=== PATIENT | female | born 1950 | race Caucasian/White ===

== ENCOUNTER → 2016-08-19 09:20 | Outpatient (CLI) | payer MEDICARE, BC ==
[2013-08-31 18:50] VITALS: BMI 28.1
[~2016-08-19 09:20] MED LIST: LOPRESSOR50 MG PO; LOTENSIN HCT 101 TAB; LOTENSIN HCT 101 TAB PO; MOBIC7.5 MG PO; NEXIUM40 MG; PERCOCET 10/3251 TA1 PO; VITAMIN D5000 UNIT; ZANTAC150 MG PO
== END | disposition home or self-care (01) ==
LOC: D.CT 09:20
DX: R42 Dizziness and giddiness (principal); G43.B0 Ophthalmoplegic migraine, not intractable

== ENCOUNTER 2016-08-21 07:41 | Emergency (ER) | payer MEDICARE, BC ==
[2013-08-31 18:50] VITALS: BMI 28.1
[2016-08-21 08:57] LABS: BASOPHILS 0.8 % (0.0-2.0); EOSINOPHILS 8.4 % (0-7); HEMATOCRIT 41.8 % (36.0-48.0); HEMOGLOBIN 13.7 g/dL (12-16); MCH 29.5 pg (26.0-34.0); MCHC 32.8 g/dL (31.0-37.0); MCV 90.1 fL (80.0-100.0); MEAN PLATELET VOLUME 10.7 fL (7.4-10.4); MONOCYTES 7.6 % (2-11); NEUTROPHILS 56.2 % (40-80); PLATELET COUNT 248 10x3/uL (130-400); RBC 4.64 10x6/uL (4.00-5.40); RDW 12.8 % (11.5-14.5); WBC 6.3 10x3/uL (4.8-10.8)
[2016-08-21 09:11] LABS: ALBUMIN 3.8 g/dL (3.4-5.0); ANION GAP 14.9 mmol/L (8-16); BILIRUBIN - TOTAL 0.5 mg/dL (0.2-1.3); CALCIUM 9.6 mg/dL (8.5-10.1); POTASSIUM - SERUM 3.9 mmol/L (3.5-5.1); PROTEIN - SERUM 7.1 g/dL (6.4-8.2)
[2016-08-21 09:42] LABS: APPEARANCE HAZY (CLEAR); BILIRUBIN NEGATIVE (NEGATIVE); COLOR YELLOW (YELLOW); GLUCOSE NEGATIVE (NEGATIVE); KETONE NEGATIVE (NEGATIVE); LEUKOCYTE ESTERASE NEGATIVE (NEGATIVE); NITRITE NEGATIVE (NEGATIVE); PROTEIN NEGATIVE (NEGATIVE); UROBILINOGEN NORMAL (NORMAL)
== END 2016-08-21 10:51 | disposition home or self-care (01) ==
LOC: D.ER 07:41
PROVIDERS: Emergency Medicine
DX: R42 Dizziness and giddiness (principal); R00.1 Bradycardia, unspecified

== ENCOUNTER 2016-10-15 08:46 | Outpatient (CLI) | payer MEDICARE, BC ==
[2013-08-31 18:50] VITALS: BMI 28.1
== END 2016-10-15 14:01 ==
LOC: D.MAMMO 08:46
DX: Z12.31 Encounter for screening mammogram for malignant neoplasm of breast (principal)

== ENCOUNTER → 2019-11-13 11:51 | Outpatient (CLI) | payer MEDICARE, BC ==
[2013-08-31 18:50] VITALS: BMI 28.1
[2019-11-13 12:16] LABS: BASOPHILS 0.3 % (0-2); HEMATOCRIT 42.1 % (36.0-48.0); HEMOGLOBIN 13.5 g/dL (12-16); IMMATURE GRANULOCYTES 0.3 % (0-5); LYMPHOCYTES 20.2 % (15-50); MCH 29.1 pg (26.0-34.0); MCHC 32.1 g/dL (31.0-37.0); MCV 90.7 fL (80.0-100.0); MEAN PLATELET VOLUME 9.2 fL (7.4-10.4); NEUTROPHILS 70.2 % (40-80); PLATELET COUNT 293 10x3/uL (130-400); RBC 4.64 10x6/uL (4.00-5.40); RDW 13.7 % (11.5-14.5); WBC 7.3 10x3/uL (4.8-10.8)
== END | disposition home or self-care (01) ==
LOC: D.LAB 11:51
PROVIDERS: ATTEND Psychiatry & Neurology Neurology
DX: R56.9 Unspecified convulsions (principal)

== ENCOUNTER → 2020-09-02 10:12 | Outpatient (CLI) | payer MEDICARE, BC ==
[2013-08-31 18:50] VITALS: BMI 28.1
[2020-09-02 10:55] LABS: BASOPHILS 0.3 % (0-2); HEMATOCRIT 41.2 % (36.0-48.0); HEMOGLOBIN 13.3 g/dL (12-16); IMMATURE GRANULOCYTES 0.2 % (0-5); LYMPHOCYTE ABS# 1.59 10x3/uL (1.18-3.74); LYMPHOCYTES 25.3 % (15-50); MCH 29.2 pg (26.0-34.0); MCHC 32.3 g/dL (31.0-37.0); MCV 90.4 fL (80.0-100.0); MEAN PLATELET VOLUME 9.8 fL (7.4-10.4); MONOCYTES 9.1 % (2-11); NEUTROPHILS 62.1 % (40-80); PLATELET COUNT 289 10x3/uL (130-400); RBC 4.56 10x6/uL (4.00-5.40); RDW 13.2 % (11.5-14.5); WBC 6.3 10x3/uL (4.8-10.8)
[2020-09-02 10:56] LABS: ANION GAP 11.9 mmol/L (8-16); BILIRUBIN - TOTAL 0.43 mg/dL (0.2-1.3); CALCIUM 9.3 mg/dL (8.5-10.1); CARBON DIOXIDE 28.3 mmol/L (21.0-32.0); CREATININE - SERUM 0.8 mg/dL (0.6-1.3); POTASSIUM - SERUM 4.2 mmol/L (3.5-5.1); PROTEIN - SERUM 7.3 g/dL (6.4-8.2)
== END | disposition home or self-care (01) ==
LOC: D.LAB 10:12
PROVIDERS: ATTEND Psychiatry & Neurology Neurology
DX: R56.9 Unspecified convulsions (principal)